=== PATIENT | female | born 1990 | race Caucasian/White ===

== ENCOUNTER 2021-12-06 17:55 | Outpatient (CLI) | payer MEDICAID, SELFPAY ==
[2021-12-06 18:14] VITALS: BMI 27.3
[2021-12-06 18:25] LABS: Microscopic, Urine URINE MICROSCOPIC (MICROSCOPIC)
[2021-12-06 18:36] LABS: Appearance,Urine CLEAR (Clear); Bilirubin,Urine Negative (Negative); Blood, Urine Negative (Negative); Color,Urine YELLOW (Yellow); Glucose,Urine (UA) Negative (Negative); Ketones,Urine 2+ (Negative); Leukocyte Esterase,Urine 2+ (Negative); Nitrate,Urine Negative (Negative); PH,Urine 6.5 (5.0-8.5); Protein,Urine Negative (Negative); Urobilinogen,Urine 0.2 EU/dl (0.2)
[2021-12-06 18:49] LABS: Barbiturates Screen,Urine Negative ng/ml (<200)
[2021-12-06 18:50] LABS: Amphetamine/Metha Screen,Urine Negative ng/ml (<1000); Benzodiazepines Screen,Urine Negative ng/ml (<200)
[2021-12-06 18:51] LABS: Cannabinoid Screen,Urine Negative ng/ml (<50)
[2021-12-06 18:52] LABS: Cocaine Screen,Urine Negative ng/ml (<300); Methadone Screen,Urine Negative ng/ml (<300)
[2021-12-06 18:53] LABS: Opiate Screen,Urine Negative ng/ml (<300); Phencyclidine Screen,Urine Negative ng/ml (<25)
[2021-12-06 19:02] LABS: Bacteria,Urine 2+ /lpf; RBC,Urine Occasional #/hpf (0-3)
--- NOTE | 2021-12-06 19:52 | US_ITS ---
PROCEDURE INFORMATION: Exam: US , Transvaginal Exam date and time: 12/06/2021 8:32 PM Age: 31 years old Clinical indication: Lmp or gestational age (in weeks): 33w 2d; Antepartum complications; Other: Contractions; ; Additional info: Cervical length TECHNIQUE: Imaging protocol: Real-time transvaginal obstetrical ultrasound of the maternal pelvis with image documentation. Transvaginal imaging was used for better evaluation of the fetus, adnexa, and/or cervix. COMPARISON: No relevant prior studies available. FINDINGS: Cervix: Closed internal os without evidence of funneling, cervical length is approximately 2.6 cm on endovaginal sonography. IMPRESSION: Closed internal os without evidence of funneling, cervical length is approximately 2.6 cm on endovaginal sonography.
[2021-12-06 21:16] LABS: Fetal Fibronectin (Rapid) Negative (Negative)
== END 2021-12-06 21:39 | disposition home or self-care (01) ==
LOC: OBOUT 18:06 → OB 18:08
PROVIDERS: Visit Provider Obstetrics & Gynecology
DX: O26.893 Other specified pregnancy related conditions, third trimester (principal); Z3A.33 33 weeks gestation of pregnancy; O21.9 Vomiting of pregnancy, unspecified
CPT/HCPCS: 59025; 76817; 80305; 81001; 82731; 87086; 96365; 96366; G0463

== ENCOUNTER → 2021-12-28 16:24 | Outpatient (CLI) | payer MEDICAID, SELFPAY ==
[2021-12-28 17:23] LABS: Hemoglobin A1C 5.1 % (4.0-6.0)
== END ==
PROVIDERS: Visit Provider Obstetrics & Gynecology
DX: Z34.90 Encounter for supervision of normal pregnancy, unspecified, unspecified trimester (principal)
CPT/HCPCS: 36415; 83036; 86403

== ENCOUNTER → 2022-01-03 09:50 | Outpatient (CLI) | payer MEDICAID, SELFPAY ==
--- NOTE | 2022-01-03 09:50 | US_ITS ---
FINAL REPORT CLINICAL HISTORY: bpp; growth FINDINGS: TRANSABDOMINAL ULTRASOUND There is a single live intrauterine gestation. Presentation is cephalic. Placenta is anterior, grade 2. Cardiac activity is confirmed at 138 bpm. Fetus is active and practice previous noted. NONI: 8.8 cm MEASUREMENTS: ULTRASOUND AGE: 36 weeks 2 days. GESTATION AGE: 37 weeks 2 days. ESTIMATED WEIGHT: 2957 g GROWTH PERCENTILE: 37% BPD: 8.9 cm corresponding with 36 weeks 1 day. OFD: 11.1 cm corresponding with 36 weeks 1 day. HC: 31.7 cm corresponding with 35 weeks 4 days. AC: 33 cm corresponding with 37 weeks 0 days. FL: 7.1 cm corresponding with 36 weeks 3 days. HC/AC: 0.96 CI: 80% FL/BPD: 79% FL/AC: 22% BREATHIN/2 MOVEMENT: 2/2 TONE: 2/2 FLUID VOLUME: 2/2 BPP SCORE: 8/8 IMPRESSION: Single living IUP with an ultrasound age of 36 weeks 2 days. BPP SCORE: 8/8. NONI: 8.8 cm Reviewed, Interpreted and Dictated by Howie Callejas III, MD Transcribed by Aleja Ramirez Authenticated and [facility]
== END ==
PROVIDERS: Visit Provider Obstetrics & Gynecology
DX: Z34.90 Encounter for supervision of normal pregnancy, unspecified, unspecified trimester (principal); Z36.89 Encounter for other specified antenatal screening
CPT/HCPCS: 76811; 76819; 76820

== ENCOUNTER 2022-01-22 17:01 | Outpatient (CLI) | payer MEDICAID, SELFPAY ==
[2022-01-22 17:09] VITALS: BMI 28.8
--- NOTE | 2022-01-22 17:11 | US_ITS ---
PROCEDURE INFORMATION: Exam: US , Limited Exam date and time: 01/22/2022 5:27 PM Age: 31 years old Clinical indication: Screening exam; Encounter for screening of mother; Third trimester (=28 weeks 0 days); ; Additional info: Non reactive nst in office. TECHNIQUE: Imaging protocol: Real-time ultrasound of the maternal uterus with image documentation. Exam focused on the clinical indication. COMPARISON: US OB BPP W/FET-MAT S/D 01/03/2022 10:06 AM FINDINGS: Gestation: Single live intrauterine gestation. heart rate of 122 bpm presentation: Presentation is cephalic. Placenta: The placenta is anterior. Amniotic fluid index: The amniotic fluid index measures 13.5 cm. BIOMETRY: Gestational age (AUA): Estimated gestational age 37 weeks 6 days based on today's measurements with an estimated due date of 02/06/2022. Previously determined estimated due date of 01/22/2022. Estimated weight: Estimated weight measures 3302 g/7 lb 4 oz (25%). Head circumference (HC): 32.5 cm, 37 weeks 0 days Abdominal circumference (AC): 33.5 cm, 37 weeks 0 days Femur length (FL): 7.6 cm, 39 weeks 0 days IMPRESSION: Single live intrauterine gestation with a gestational age of 37 weeks 6 days based on today's measurements with an estimated due date of 02/06/2022. Previously determined estimated due date of 01/22/2022. Remainder of findings as described above. PROCEDURE INFORMATION: Exam: US Doppler Velocimetry of the Umbilical Artery Exam date and time: 01/22/2022 5:27 PM Age: 31 years old Clinical indication: Screening exam; Encounter for screening of mother; Third trimester (=28 weeks 0 days); ; Additional info: Non reactive nst in office. TECHNIQUE: Imaging protocol: US Doppler velocimetry of the umbilical artery with Doppler color and waveform analysis. COMPARISON: US OB BPP W/FET-MAT S/D 01/03/2022 10:06 AM FINDINGS: Umbilical cord and insertion: There are 2 umbilical arteries and 1 umbilical vein. Cord insertion on the abdominal wall is normal. Umbilical artery Doppler: Waveforms are within normal limits for age. Umbilical artery peak systolic velocity: Peak systolic velocity of 47 cm/s Umbilical artery systolic to diastolic ratio: Systolic to diastolic ratio is within normal limits for age, measuring 2.2. IMPRESSION: Unremarkable umbilical Doppler for age. PROCEDURE INFORMATION: Exam: US Biophysical Profile Without Non-Stress Test Exam date and time: 01/22/2022 5:27 PM Age: 31 years old Clinical indication: Screening exam; Encounter for screening of mother; Third trimester (=28 weeks 0 days); ; Additional info: Non reactive nst in office. TECHNIQUE: Imaging protocol: US biophysical profile without non-stress testing. COMPARISON: US OB BPP W/FET-MAT S/D 01/03/2022 10:06 AM FINDINGS: BIOPHYSICAL PROFILE: breathing movement (BPP): 2 out of 2. body movement (BPP): 2 out of 2. tone (BPP): 2 out of 2. Amniotic fluid (BPP): 2 out of 2. IMPRESSION: Biophysical profile score is 8 out of 8.
[2022-01-22 17:23] LABS: Microscopic, Urine URINE MICROSCOPIC (MICROSCOPIC)
[2022-01-22 17:32] VITALS: BP 107/81; PULSE 78; RESP 18; TEMP 36.9; O2SAT 100; BMI 28.8
[2022-01-22 17:36] LABS: Appearance,Urine CLEAR (Clear); Bilirubin,Urine Negative (Negative); Blood, Urine Negative (Negative); Color,Urine YELLOW (Yellow); Glucose,Urine (UA) Negative (Negative); Ketones,Urine Negative (Negative); Leukocyte Esterase,Urine Negative (Negative); Nitrate,Urine Negative (Negative); Protein,Urine Negative (Negative); Specific Gravity, Urine 1.025 (1.005-1.030)
[2022-01-22 17:48] LABS: Bacteria,Urine Trace /lpf; Mucus,Urine 1+ /lpf; Squamous Epithelial Cell,Urine Occasional #/hpf (0-5); WBC,Urine Occasional #/hpf (0-3)
[2022-01-22 17:49] LABS: Benzodiazepines Screen,Urine Negative ng/ml (<200)
[2022-01-22 17:50] LABS: Amphetamine/Metha Screen,Urine Negative ng/ml (<1000); Barbiturates Screen,Urine Negative ng/ml (<200)
[2022-01-22 17:51] LABS: Cannabinoid Screen,Urine Negative ng/ml (<50)
[2022-01-22 17:52] LABS: Cocaine Screen,Urine Negative ng/ml (<300); Methadone Screen,Urine Negative ng/ml (<300)
[2022-01-22 17:54] LABS: Opiate Screen,Urine Negative ng/ml (<300); Phencyclidine Screen,Urine Negative ng/ml (<25)
== END 2022-01-22 18:38 | disposition home or self-care (01) ==
LOC: OBOUT 17:03 → OB 17:06
PROVIDERS: Referring Provider Obstetrics & Gynecology; Visit Provider Obstetrics & Gynecology
DX: O26.893 Other specified pregnancy related conditions, third trimester (principal); Z3A.40 40 weeks gestation of pregnancy
CPT/HCPCS: 59025; 76811; 76819; 76820; 80305; 81001; G0463